=== PATIENT | male | born 1965 | race Caucasian/White ===

== ENCOUNTER → 2016-10-15 | Outpatient (CLI) | payer SELFPAY ==
[2016-10-15 07:28] LABS: ABSOLUTE BASOPHILS # (AUTO) 0.1 10^3/uL (0.0-0.2); ABSOLUTE EOSINOPHILS # (AUTO) 0.2 10^3/uL (0.0-0.6); ABSOLUTE LYMPHOCYTES (AUTO) 1.9 10^3/uL (0.5-4.7); ABSOLUTE MONOCYTES (AUTO) 0.5 10^3/uL (0.1-1.4); EOSINOPHILS % (AUTO) 3.1 % (0-6); WHITE BLOOD COUNT 6.6 10^3/uL (4.0-10.5)
[2016-10-15 07:41] LABS: ABSOLUTE NEUT (AUTO) 3.8 10^3/uL (1.7-8.2); BASOPHILS % (AUTO) 1.9 % (0-2); HEMATOCRIT 44.7 % (37.9-51.0); HEMOGLOBIN 15.8 g/dL (13.5-17.0); HGB HCT DIFFERENCE 2.7; LYMPHOCYTES % (AUTO) 29.2 % (13-45); MEAN CORPUSCULAR HEMOGLOBIN 31.2 pg (27.0-33.4); MEAN CORPUSCULAR HGB CONC 35.4 g/dL (32.0-36.0); MEAN CORPUSCULAR VOLUME 88 fl (80-97); RED BLOOD COUNT 5.08 10^6/uL (4.35-5.55); RED CELL DISTRIBUTION WIDTH 13.7 % (11.5-14.0); SEGMENTED NEUTROPHILS % (AUTO) 57.8 % (42-78)
[2016-10-15 07:52] LABS: ALANINE AMINOTRANSFERASE 37 U/L (21-72); ALBUMIN 4.7 g/dL (3.5-5.0); ALKALINE PHOSPHATASE 73 U/L (38-126); ANION GAP 11 (5-19); ASPARTATE AMINO TRANSFERASE 29 U/L (17-59); BILIRUBIN,DIRECT 0.2 mg/dL (0.0-0.4); BILIRUBIN,TOTAL 0.7 mg/dL (0.2-1.3); BLOOD UREA NITROGEN 17 mg/dL (7-20); CALCIUM 10.5 mg/dL (8.4-10.2); CARBON DIOXIDE 26 mmol/L (22-30); CHLORIDE 108 mmol/L (98-107); CHOLESTEROL 242.04 mg/dL (0-200); CREATININE RESULT 0.91 mg/dL (0.52-1.25); Direct HDL 43 mg/dL (>40); GLUCOSE 129 mg/dL (75-110); MAGNESIUM 2.1 mg/dL (1.6-2.3); POTASSIUM 4.5 mmol/L (3.6-5.0); TOTAL PROTEIN 7.2 g/dL (6.3-8.2); TRIGLYCERIDES 499 mg/dL (<150)
[2016-10-15 08:06] LABS: DIRECT LDL 106 mg/dL (<100)
[2016-10-15 08:09] LABS: FREE T3 2.59 pg/mL (2.77-5.27)
[2016-10-15 08:23] LABS: THYROID STIMULATING HORMONE 36.6 uIU/mL (0.47-4.68)
[2016-10-16 12:53] LABS: INSULIN 28.1 uIU/mL (2.6-24.9)
== END ==
LOC: LAB 07:09
PROVIDERS: ATTEND Internal Medicine
DX: E03.9 Hypothyroidism, unspecified (principal); E78.5 Hyperlipidemia, unspecified; R73.9 Hyperglycemia, unspecified; R53.83 Other fatigue; R35.1 Nocturia
CPT/HCPCS: 36415; 80053; 80061; 83036; 83525; 83735; 84153; 84403; 84439; 84443; 84481; 85025